=== PATIENT | male | born 1950 | race Caucasian/White ===

== ENCOUNTER → 2016-11-29 | Outpatient (CLI) | payer BC ==
[~2016-11-29] MED LIST: ACETAMINOPHEN325 MG PO; AMLODIPINE BESY10 MG PO; HYDROCODON-ACE1 EAC9 PO; NORVASC PO; VICODIN 5/500 T1 TAB PO
--- NOTE | ~2016-11-29 | CT5 ---
[facility] A Service of [facility] RADIOLOGY TEXT RESULTS PATIENT: TEVIN GASTON [facility] UN[facility] #: [id number] AGE: [address]: Kavitha Boston MD SEX: M ORDER DR: [id number] [facility]. [place], [place] [address] [id number] O MR#: [id number] Acc #: [id number] NAME: TEVIN GASTON : 1950 SEX: M STUDY DATE/TIME: 11/29/2016 10:55 UNIT: [facility] ROOM: STUDY DESCRIPTION: CT Abdomen W Cont Attending Physician: Kavitha Boston M.D. Referring Physician: Kavitha Boston M.D. Ordering Physician: Kavitha Boston M.D. Primary Care Physician: Shira Lucia M.D. MEDICAL IMAGING REPORT This report is preliminary unless electronic signature is present EXAM CT abdomen INDICATION Abdominal pain. Pancreatic cyst. Nausea. TECHNIQUE CT of the abdomen utilizing 100 mL Isovue-370 IV contrast. Oral contrast was also administered. Coronal and sagittal reconstructions were obtained. This CT exam was performed with one or more of the following radiation dose reduction techniques: automatic exposure control, adjustment of mA and/or kV according to patient size, and iterative reconstruction. COMPARISON CT abdomen dated 07/19/2016 and 03/18/2016. FINDINGS The low attenuation cystic mass in the centered about the body of the pancreas measures 7.9 x 7.2 x 7.5 cm, compared to 8.0 x 6.9 x 7.9 cm. No mural enhancement is identified. Low-attenuation simple fluid is noted internally. There is no acute pancreatic inflammation. Pancreatic duct is normal in caliber. 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 There are extensive gastric collaterals. No new findings are identified in the liver. The spleen, adrenal glands and kidneys are within normal limits. No hydronephrosis. The bowel is not dilated. No enlarged retroperitoneal or mesenteric lymph nodes. No acute osseous abnormalities. [facility] A Service of [facility] & [facility] RADIOLOGY TEXT RESULTS PATIENT: TEVIN GASTON [facility] [birth year] UNIT #: [id number] AGE: [address]: Kavitha Boston MD SEX: M ORDER DR: IMPRESSION 1. Large pseudocyst centered about the pancreatic body measures up to 7.9 cm, not significantly changed from the 07/19/2016 comparison. 2. No evidence of active pancreatic inflammation. 3. 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 Presence of gastric collaterals suggests this is a physiologically significant stenosis. Dictated by... Jerod Aly M.D. THIS IS AN ELECTRONICALLY VERIFIED REPORT Jerod Aly M.D. at 11/30/2016 12:08 PM Mariya TD: 11/30/2016 10:03 JOB #: [id number] MEDICAL IMAGING REPORT Page 1 of 1 COPY
[2016-11-29 10:11] LABS: POC - CREATININE 1.11 mg/dL (0.64-1.27); POC - GFR >60.0 mL/min (>60)
== END | disposition home or self-care (01) ==
LOC: CCAT 09:10
PROVIDERS: Internal Medicine Gastroenterology
DX: K86.2 Cyst of pancreas (principal); R10.9 Unspecified abdominal pain; R11.0 Nausea; K86.3 Pseudocyst of pancreas; I74.8 Embolism and thrombosis of other arteries
CPT/HCPCS: 74160; 82565; Q9967

== ENCOUNTER → 2016-12-02 | Outpatient (CLI) | payer BC ==
[2016-12-02 18:09] LABS: BASOPHIL% 0.5 % (0-2.5); DIFF IND NO; EOSINOPHIL# 0.3 X10e3 (0-0.7); EOSINOPHIL% 3.6 % (0.0-7.0); HEMOGLOBIN 12.8 gm/dL (13.0-16.0); LYMPHOCYTE# 2.4 X10e3 (1.0-3.5); LYMPHOCYTE% 27.8 % (17.0-45.0); MEAN CELL VOLUME 85.9 FL (83-96); MEAN CORPUSCULAR HGB CONC 33.7 g/dL (30-36); MEAN PLATELET VOLUME 7.5 FL (6.5-11.5); MONOCYTE# 0.8 X10e3 (0-1.0); MONOCYTE% 8.7 % (3.0-12.0); NEUTROPHIL# 5.2 X10e3 (1.5-7.1); NEUTROPHIL% 59.4 % (40-75); PLATELET COUNT 296 X10e3 (140-420); RED BLOOD COUNT 4.43 X10e (3.90-5.60); RED CELL DISTRIBUTION WIDTH 13.9 % (11.0-15.5); WHITE BLOOD COUNT 8.7 X10e3 (4.0-10.5)
[2016-12-02 18:35] LABS: BILIRUBIN,TOTAL 0.3 mg/dL (0.2-2.0); CALCIUM SERUM 9.1 mg/dL (8.4-10.2); GLOM FILT RATE Estimated 79.8 mL/min (>60); POTASSIUM 4.2 mmol/L (3.5-5.1); PROTEIN TOTAL SERUM 7.7 g/dL (6.0-8.3)
== END | disposition home or self-care (01) ==
LOC: CLAB 17:53
PROVIDERS: Nurse Practitioner
DX: K86.3 Pseudocyst of pancreas (principal)
CPT/HCPCS: 36415; 80053; 83690; 85025

== ENCOUNTER → 2017-03-21 | Outpatient (CLI) | payer BC ==
--- NOTE | ~2017-03-21 | CT3 ---
[facility] A Service of [facility] & [facility] RADIOLOGY TEXT RESULTS PATIENT: TEVIN GASTON GENE LOCATION: [facility] : 54 UNIT #: [id number] AGE: [address]: Kavitha Boston MD SEX: M ORDER DR: [id number] [facility] [address] [place], [place] [address] [id number] O MR#: [id number] Acc #: [id number] NAME: TEVIN GASTON : 1950 SEX: M STUDY DATE/TIME: 03/21/2017 9:52 UNIT: [facility] ROOM: STUDY DESCRIPTION: CT Abd and Pelv WWo Cont Attending Physician: Kavitha Boston M.D. Referring Physician: Kavitha Boston M.D. Ordering Physician: Kavitha Boston M.D. Primary Care Physician: Shira Lucia M.D. MEDICAL IMAGING REPORT This report is preliminary unless electronic signature is present EXAM CT abdomen without and with contrast, CT pelvis with contrast (pancreatic imaging protocol), 03/21/2017 HISTORY Pancreatic pseudocyst. 3-month followup. No current complaints. Previous cholecystectomy. COMPARISON CT abdomen with contrast 11/29/2016. CT abdomen and pelvis without and with contrast 07/19/2016. PROCEDURE 3.0 mm axial images through the abdomen and pelvis. Precontrast imaging followed by postcontrast imaging in the arterial and portal venous phases through the abdomen with attention to the pancreas. Venous phase imaging was extended through the pelvis. 5-minute delayed phase imaging was obtained through the abdomen. Sagittal and coronal reformatted images obtained. Enteric contrast not administered. This CT exam was performed with one or more of the following radiation dose reduction techniques: automatic exposure control, adjustment of mA and/or kV according to patient size, and iterative reconstruction. FINDINGS Pancreatic pseudocyst measures 7.9 x 7.3 x 7.7 cm, little change from 11/29/2016 where it measured 7.9 x 7.2 x 7.5 cm. It is centered within the mid pancreatic body region. No abnormal enhancing mural nodularity is seen within it. There is upstream dilation of the pancreatic duct within the pancreatic tail measuring up to 6.0 mm, similar to prior. No active peripancreatic inflammation is seen. There is high-grade stenosis of the splenic vein prior to the splenic confluence, similar to prior exam, with extensive gastric collaterals. There is partial narrowing of the [facility]. [facility] A Service of [facility] & [facility] RADIOLOGY TEXT RESULTS PATIENT: TEVIN GASTON LOCATION: [facility] : 54 UNIT #: [id number] AGE: [address]: Kavitha Boston MD SEX: M ORDER DR: without high-grade stenosis or thrombosis. Portal vein remains patent. A couple of tiny calcifications are seen within the pancreatic head consistent with chronic calcific pancreatitis. Extensive granulomatous changes are seen within the liver and spleen. There is mild intrahepatic pneumobilia likely related to previous biliary sphincterotomy. Cholecystectomy changes are present. Adrenals and kidneys are within normal limits. Celiac artery, splenic artery, common hepatic artery are patent. The bowel appears grossly nonthickened, nondilated, and noninflamed. PELVIS FINDINGS: Urinary bladder, prostate and rectum are normal. No pelvic adenopathy or free fluid is seen. Imaged lung bases are clear. No acute osseous abnormalities are identified. IMPRESSION 1. Large mid pancreatic body pseudocyst is stable compared to 11/29/2016 measuring up to 7.9 cm. No active peripancreatic inflammation. 2. Mild upstream pancreatic ductal dilation of the pancreatic tail up to 6.0 mm, unchanged. 3. 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 4. Cholecystectomy. Stable intrahepatic pneumobilia suggesting previous biliary sphincterotomy. Dictated by... Peyton Lan M.D. THIS IS AN ELECTRONICALLY VERIFIED REPORT Peyton Lan M.D. at 03/24/2017 7:33 AM Agnieszka TD: 03/22/2017 15:33 JOB #: [id number] MEDICAL IMAGING REPORT Page 1 of 1 COPY
[2017-03-21 18:35] LABS: POC - CREATININE 1.03 mg/dL (0.64-1.27); POC - GFR >60.0 mL/min (>60)
== END | disposition home or self-care (01) ==
LOC: CCAT 09:15
PROVIDERS: Internal Medicine Gastroenterology
DX: K86.3 Pseudocyst of pancreas (principal); K86.89 Other specified diseases of pancreas; K83.8 Other specified diseases of biliary tract; I87.1 Compression of vein; Z90.49 Acquired absence of other specified parts of digestive tract
CPT/HCPCS: 74178; 82565; Q9967

== ENCOUNTER → 2017-04-21 | Outpatient (CLI) | payer BC | END | disposition home or self-care (01) | LOC: CECH 13:13 | DX: R01.1 Cardiac murmur, unspecified (principal); I35.8 Other nonrheumatic aortic valve disorders | CPT/HCPCS: 93306 ==